=== PATIENT | female | born 1935 | race Caucasian/White ===

== ENCOUNTER 2020-06-07 11:27 | Emergency (ER) | payer OTHER ==
[2020-06-07 11:41] VITALS: BP 144/77; PULSE 77; TEMP 97.6; BMI 28.5
--- NOTE | 2020-06-07 12:07 | PDOC ---
History of Present Illness - General Chief Complaint: Bone Injury Stated Complaint: FALL Time Seen by Provider: 06/07/20 11:51 History Source: Patient - History of Present Illness Occurred: reports: other Lower Extremity Pain Location: left: other (thigh) Past History - Medical History Allergies/Adverse Reactions: Allergies Allergy/AdvReac Type Severity Reaction Status Date / Time Penicillins Allergy Verified 06/12/13 13:57 Home Medications: Ambulatory Orders Blood Sugar Diagnostic [One Touch Test Strips] 30 each MC BID #0 strip 06/12/13 Blood-Glucose Meter [One Touch Basic System] 1 each MC BID #0 kit 06/12/13 Budesonide/Formeterol Fumarate [SYMBICORT 160/4.5mcg -] 2 inh IH BID 06/12/13 Ciprofloxacin [Cipro] 500 mg PO BID #20 tablet 06/12/13 Famotidine [Pepcid -] 20 mg PO DAILY 06/12/13 Lancets [One Touch Lancets] 30 each MC BID #0 each 06/12/13 Levalbuterol HCl [Xopenex] 0.63 mg IH BID 06/12/13 Meclizine HCl [Antivert -] 25 mg PO TID PRN 06/12/13 Rosuvastatin Calcium [Crestor] 5 mg PO DAILY 06/12/13 Sulfamethoxazole/Trimethoprim [Bactrim DS -] 1 tab PO BID #20 tablet 06/12/13 Asthma: Yes Cancer: Yes (esophageal, L eye) COPD: Yes Diabetes: Yes HTN: Yes - Immunization History Immunization Up to Date: Yes - Psycho-Social/Smoking History Smoking Status: No Smoking History: Never smoked Number of Cigarettes Smoked Daily: 0 - Substance Abuse Hx (Audit-C & DAST Scrn) How often the patient has a drink containing alcohol: Monthly or less Score: In Men: 4 or > Positive; In Women: 3 or > Positive: 1 Screen Result (Pos requires Nsg. Audit-10AR): Negative In the last yr the pt used illegal drug/Rx for NonMed reason: No Score: Yes response is considered Positive: 0 Screen Result (Positive result requires Nsg. DAST-10): Negative Review of Systems - Review of Systems Musculoskeletal: No: Joint Pain, Joint Swelling Integumentary: Yes: Bruising *Physical Exam - Vital Signs Last Vital Signs Temp Pulse Resp BP Pulse Ox 97.6 F 77 20 144/77 97 06/07/20 11:35 06/07/20 11:35 06/07/20 11:35 06/07/20 11:35 06/07/20 11:35 - Physical Exam General Appearance: Yes: Appropriately Dressed. No: Apparent Distress HEENT: positive: Normal Voice Neck: positive: Supple Respiratory/Chest: negative: Respiratory Distress Extremity: positive: Normal Inspection, Tender (w/ contusion to lateral L thigh near hip, no LE deformity, bearing weight) ED Treatment Course - RADIOLOGY Radiology Studies Ordered: Category Date Time Status FEMUR-LEFT [RAD] Stat Radiology 06/07/20 11:52 Ordered HIP & PELVIS-LEFT [RAD] Stat Radiology 06/07/20 11:52 Ordered Medical Decision Making - Medical Decision Making 06/07/20 12:41 84 yo F, h/o OA, DM, hip "tendinitis" and due for 1st PT session this am but sent to ED for xray of L hip/thigh as pt reported to PT staff that she fell 3 weeks ago. Pt states she did not go to ER. States bruising and pain gradually improving. Has been bearing weight at home see exam L thigh contusion XR neg Dc to continue PT Discharge - Discharge Information Problems reviewed: Yes Clinical Impression/Diagnosis: Thigh contusion Qualifiers: Encounter type: initial encounter Laterality: left Qualified Code(s): S70.12XA - Contusion of left thigh, initial encounter Condition: Good Disposition: HOME - Follow up/Referral - Patient Discharge Instructions Patient Printed Discharge Instructions: Contusion Additional Instructions: You hip/thigh xray did not show any fracture Take tylenol as needed and follow up with your PMD - Post Discharge Activity
== END 2020-06-07 12:46 | disposition home or self-care (01) ==
LOC: JERFT 11:27
DX: S70.12XA Contusion of left thigh, initial encounter (principal)
CPT/HCPCS: 73523-TC-FY; 73552-TC-LT-FY; 99283-25